=== PATIENT | female | born 1990 | race African-American/Black ===

== ENCOUNTER 2018-10-05 17:30 | Emergency (ER) | payer MEDICARE ==
[~2018-10-05] VITALS: Ht 175.3 cm; Wt 116.1 kg
--- OUTSIDE RECORDS SUMMARY | 2018-10-05 17:32 | XMS REPORT | Clinical Summary ---
Author Author [facility] Organization [facility] Address Unknown Phone Unavailable Care Team Providers Care Teacher Citizenship Name Role Phone Sharpless PCP Allergies No Known Allergies Medications End Date Status Medication Sig Dispensed Refills Start Date Active promethazine (PHENERGAN) TK ONE T PO 0 12.5 MG tablet BID 30 8 MINUTES BEFORE BREAKFAST AND SUPPER Active doxylamine-pyridoxine, 1 tab PO q 30 tablet 0 vit B6, (DICLEGIS) 10-10 AM, 1 tab PO 8 mg TbEC q mid-afternoon , 2 tabs PO qhs. 12/28/2017 promethazine (PHENERGAN) Place 1 12 0 25 MG suppository suppository suppository 8 (25 mg total) rectally every 6 (six) hours as needed for Nausea for up to 7 days. Active Problems Comments Yes No additional problems on file Encounters Care Team Description Date Type Specialty Verito, Will III, DO Hyperemesis gravidarum (Primary Dx); Non-intractable cyclical vomiting with nausea; Elevated liver enzymes; Primigravida in first trimester 12/21/2017 Emergency Emergency Medicine after 10/04/2017 Social History Date Tobacco Use Types Packs/Day Years Used Former Smoker Tobacco Cessation: Ready to Quit: No Alcohol Use Drinks/Week oz/Week Comments No Comments Yes Sex Assigned at Date Recorded Not on file Industry Job Start Date Occupation Not on file Not on file Not on file Travel End Travel History Travel Start No recent travel history available. Last Filed Vital Signs Time Taken Vital Sign Reading 12/21/2017 11:28 PM CDT Blood Pressure 115/58 12/21/2017 11:28 PM CDT Pulse 83 12/21/2017 9:47 PM CDT Temperature 37 C (98.6 F) 12/21/2017 11:28 PM CDT Respiratory Rate 18 12/21/2017 9:47 PM CDT Oxygen Saturation 96% - Inhaled Oxygen - Concentration 12/21/2017 9:47 PM CDT Weight 89.8 kg (198 lb) - Height - 12/21/2017 9:47 PM CDT Body Mass Index 29.23 Plan of Treatment Not on file Procedures Comments Procedure Name Priority Date/Time Associated Diagnosis CBC W/PLT COUNT & AUTO STAT 12/21/2017 DIFFERENTIAL 10:04 PM CDT LIPASE STAT 12/21/2017 10:04 PM CDT COMPREHENSIVE METABOLIC STAT 12/21/2017 PANEL 10:04 PM CDT CBC W/PLT COUNT & AUTO STAT 12/21/2017 DIFFERENTIAL 10:04 PM CDT after 10/04/2017 Results * CBC with platelet count + automated diff (12/21/2017 10:04 PM CDT) WBC 6.8 4.0 - 10.0 10e3/L [facility] [place] RBC 4.57 4.00 - 5.00 10e6/L [facility] Hemoglobin 13.9 12.0 - 15.0 g/dL [facility] Hematocrit 41.8 36.0 - 45.0 % [facility] [place] MCV 91.6 82.0 - 99.0 fL [facility] [place] MCH 30.4 27.0 - 33.0 pg [facility] [place] MCHC 33.2 32.0 - 36.0 g/dL [facility] [place] RDW 11.7 10.3 - 14.2 % [facility] [place] Platelets 301 150 - 430 10e3/L [facility] [place] MPV 8.5 6.5 - 10.5 fL [facility] [place] % Neutros 66 % [facility] [place] % Lymphs 21 % [facility] % Monos 10 % [facility] % Eos 3 % [facility] % Baso 1 % [facility] # Neutros 4.44 1.80 - 8.00 10e3/L [facility] [place] # Lymphs 1.43 (L) 1.48 - 4.50 10e3/L [facility] # Monos 0.66 0.00 - 1.30 10e3/L [facility] # Eos 0.20 0.00 - 0.50 10e3/L [facility] # Baso 0.03 0.00 - 0.20 10e3/L [facility] Specimen Blood Performing Organization Address City/[facility]/Zipcode Phone Number [facility] [address] [place] [address] [facility] * Lipase (12/21/2017 10:04 PM CDT) Lipase 44 40 - 240 U/L [facility], [facility], [facility] Specimen Blood Performing Organization Address City/State/Zipcode Phone Number [facility] [address] [place], [place] [id number] [facility] [place] * Comprehensive metabolic panel (12/21/2017 10:04 PM CDT) [facility], Total 7.3 6.0 - 8.5 gm/dL [facility], [facility], [facility] Albumin 4.2 3.5 - 5.0 g/dL [facility] Alkaline Phosphatase 97 30 - 115 U/L [facility] Total Bilirubin 0.7 0.1 - 1.2 mg/dL [facility], [facility], [facility] Sodium 139 135 - 148 meq/L [facility] Potassium 3.4 (L) 3.6 - 5.5 meq/L [facility] [place] Chloride 102 98 - 106 meq/L [facility] CO2 26 24 - 32 meq/L [facility] BUN 7 (L) 10 - 26 mg/dL [facility] Creatinine 0.70 0.50 - 1.20 mg/dL [facility] Glucose 104 70 - 110 mg/dL [facility] Calcium 9.7 8.5 - 10.5 mg/dL [facility], [facility], [facility] AST 85 (H) 5 - 40 U/L [facility] ALT 233 (H) 5 - 50 U/L [facility], [facility] EGFR 122Comment: ESTIMATED GFR IS mL/min/1.73 sq m [facility] NOT ACCURATE CREATININE [facility] MEDICAL CLEARANCE IN PREDICTING [facility] GLOMERULAR FILTRATION RATE. EMERGENCY CENTER, ESTIMATED GFR IS NOT [facility] APPLICABLE FOR DIALYSIS PATIENTS. Specimen Blood Performing Organization Address City/State/Zipcode Phone Number [facility] [address] [place] [address] [facility], [facility] after 10/04/2017 Insurance Payer Benefit Subscriber ID Type Phone Address Plan / Group MEDICAID - MEDICAID MGD MEDICAID xxxxxxxxx Medicaid CARE COMM Contracted HEALTH CHOICE
--- OUTSIDE RECORDS SUMMARY | 2018-10-05 17:32 | XMS REPORT ---
Author Author [facility] Address Unknown Phone Unavailable Care Team Providers Care Circus Artist Name Role Phone LOGAN, WILL Unavailable Unavailable Payers Payer Name Policy Type Policy Number Effective Date Expiration Date Problems This patient has no known problems. Allergies, Adverse Reactions, Alerts Allergy Name Allergy Type Status Severity Reaction(s) Onset Date Inactive Date Treating Clinician Comments No Known Allergies DA Active U 2018-07-07 00:00:00 Medications This patient has no known medications. Results Test Description Test Time Test Comments Text Results Atomic Results Result Comments CBC W/PLT COUNT & AUTO DIFFERENTIAL 2017-12-21 22:32:00 WHITE BLOOD CELL COUNT (BEAKER) (test bzwx=374) 6.8 10e3/i? L 4.0-10.0 RED BLOOD CELL COUNT (BEAKER) (test lihu=196) 4.57 10e6/i? L 4.00-5.00 HEMOGLOBIN (BEAKER) (test qhdz=741) 13.9 g/dL 12.0-15.0 HEMATOCRIT (BEAKER) (test nszc=189) 41.8 % 36.0-45.0 MEAN CORPUSCULAR VOLUME (BEAKER) (test fqgl=724) 91.6 fL 82.0-99.0 MEAN CORPUSCULAR HEMOGLOBIN (BEAKER) (test qtdi=572) 30.4 pg 27.0-33.0 MEAN CORPUSCULAR HEMOGLOBIN CONC (BEAKER) (test jnsc=208) 33.2 g/dL 32.0-36.0 RED CELL DISTRIBUTION WIDTH (BEAKER) (test rhme=090) 11.7 % 10.3-14.2 PLATELET COUNT (BEAKER) (test yega=407) 301 10e3/i? L 150-430 MEAN PLATELET VOLUME (BEAKER) (test wtdm=292) 8.5 fL 6.5-10.5 NEUTROPHILS RELATIVE PERCENT (BEAKER) (test rxjm=129) 66 % LYMPHOCYTES RELATIVE PERCENT (BEAKER) (test vxzx=933) 21 % MONOCYTES RELATIVE PERCENT (BEAKER) (test fakj=088) 10 % EOSINOPHILS RELATIVE PERCENT (BEAKER) (test lysp=377) 3 % BASOPHILS RELATIVE PERCENT (BEAKER) (test phaw=092) 1 % NEUTROPHILS ABSOLUTE COUNT (BEAKER) (test brbu=949) 4.44 10e3/i? L 1.80-8.00 LYMPHOCYTES ABSOLUTE COUNT (BEAKER) (test wkhe=189) 1.43 10e3/i? L 1.48-4.50 MONOCYTES ABSOLUTE COUNT (BEAKER) (test aqif=292) 0.66 10e3/i? L 0.00-1.30 EOSINOPHILS ABSOLUTE COUNT (BEAKER) (test xezm=257) 0.20 10e3/i? L 0.00-0.50 BASOPHILS ABSOLUTE COUNT (BEAKER) (test fqvm=968) 0.03 10e3/i? L 0.00-0.20 COMPREHENSIVE METABOLIC [id number] 22:30:00* Test Item Value Reference Range Comments TOTAL PROTEIN (BEAKER) (test szrd=240) 7.3 gm/dL 6.0-8.5 ALBUMIN (BEAKER) (test tudl=2069) 4.2 g/dL 3.5-5.0 ALKALINE PHOSPHATASE (BEAKER) (test qocf=138) 97 U/L 30-115 BILIRUBIN TOTAL (BEAKER) (test ctmi=935) 0.7 mg/dL 0.1-1.2 SODIUM (BEAKER) (test umpj=572) 139 meq/L 135-148 POTASSIUM (BEAKER) (test xjfm=670) 3.4 meq/L 3.6-5.5 CHLORIDE (BEAKER) (test ofko=976) 102 meq/L 98-106 CO2 (BEAKER) (test ruzw=465) 26 meq/L 24-32 BLOOD UREA NITROGEN (BEAKER) (test dncq=845) 7 mg/dL 10-26 CREATININE (BEAKER) (test ujpo=840) 0.70 mg/dL 0.50-1.20 GLUCOSE RANDOM (BEAKER) (test xsgm=957) 104 mg/dL 70-110 CALCIUM (BEAKER) (test zotr=140) 9.7 mg/dL 8.5-10.5 AST (SGOT) (BEAKER) (test cmhs=975) 85 U/L 5-40 ALT (SGPT) (BEAKER) (test jkjj=610) 233 U/L 5-50 EGFR (BEAKER) (test ejgp=7279) 122 mL/min/1.73 sq m ESTIMATED GFR IS NOT ACCURATE CREATININE CLEARANCE IN PREDICTING GLOMERULAR FILTRATION RATE. ESTIMATED GFR IS NOT APPLICABLE FOR DIALYSIS PATIENTS. [id number] 22:28:00* Test Item Value Reference Range Comments LIPASE (BEAKER) (test ilnl=704) 44 U/L 40-240
[2018-10-05] MEDS ORDERED: HYDROCODONE/APAP 5MG-325MG TAB PO ONE (18:00)
== END 2018-10-05 18:00 | disposition home or self-care (01) ==
LOC: FSED 17:30
DX: K04.7 Periapical abscess without sinus (principal)
CPT/HCPCS: 99283

== ENCOUNTER 2019-06-05 18:20 | Emergency (ER) | payer SELFPAY ==
[~2019-06-05] VITALS: Ht 175.3 cm; Wt 99.8 kg
== END 2019-06-05 19:00 | disposition home or self-care (01) ==
LOC: FSED 18:20
DX: T16.2XXA Foreign body in left ear, initial encounter (principal); H60.92 Unspecified otitis externa, left ear
CPT/HCPCS: 99283